=== PATIENT | male | born 1995 | race American Indian/Alaskan Native ===

== ENCOUNTER 2021-10-28 09:01 | Emergency (ER) | payer MEDICAID ==
[~2021-10-28] VITALS: Ht 177.8 cm; Wt 127.3 kg
[~2021-10-28 09:01] MED LIST: ALBU8.5H4 IH; PRED20TA PO
[2021-10-28 09:08] VITALS: BP 111/70
[2021-10-28] MEDS ORDERED: PENI250T2 PO (09:57)
[2021-10-28] MEDS ORDERED: TRAM50TA2 PO (09:57)
[2021-10-28] MEDS ORDERED: NAPR-56 PO (09:57)
== END 2021-10-28 10:05 | disposition home or self-care (01) ==
LOC: ER 09:02
DX: K01.1 Impacted teeth (principal)
CPT/HCPCS: 99283

== ENCOUNTER 2023-11-10 00:45 | Emergency (ER) | payer MEDICAID ==
[~2023-11-10] VITALS: Ht 180.3 cm; Wt 131.8 kg
[2023-11-10 03:26] VITALS: PULSE 96
[2023-11-10] MEDS ORDERED: DYN500C PO (04:01)
[2023-11-10] MEDS ORDERED: CIPR10DR LEFT EAR (04:08)
[2023-11-10] MEDS: dicloxacillin 500 MG capsule PO STA (04:41)
[2023-11-10] MEDS: Cipro HC otic suspension 10ML bottle LEFT EAR STA (04:51)
[2023-11-10] MEDS: HYDROcodone/acetaminophen 10/325mg tab PO ONE (05:08)
[2023-11-10] MEDS: naproxen 500mg tablet PO ONE (05:08)
[2023-11-10] MEDS: amox tr/potassium clavulanate 875/125mg TAB PO ONE (05:09)
[2023-11-10 05:23] VITALS: BP 147/47; RESP 12; TEMP 98.7; O2SAT 100
== END 2023-11-10 05:25 | disposition home or self-care (01) ==
LOC: ER 00:45
DX: H60.8X2 Other otitis externa, left ear (principal); Z98.890 Other specified postprocedural states; Z79.899 Other long term (current) drug therapy; Z79.2 Long term (current) use of antibiotics
CPT/HCPCS: 99284

== ENCOUNTER 2023-12-19 20:33 | Emergency (ER) | payer MEDICAID ==
[~2023-12-19] VITALS: Ht 180.3 cm; Wt 132.0 kg
[2023-12-19] MEDS ORDERED: NEOM10DR45 RIGHT EAR (21:24)
[2023-12-19] MEDS ORDERED: AMOX500C2 PO (21:24)
[2023-12-19] MEDS: acetaminophen 325mg tablet PO ONE (21:41)
[2023-12-19] MEDS: ibuprofen tablet 400 MG TABLET PO ONE (21:41)
[2023-12-19 21:53] VITALS: BP 142/80; PULSE 99; RESP 20; TEMP 99.6; O2SAT 96
== END 2023-12-19 21:53 | disposition home or self-care (01) ==
LOC: ER 20:34
DX: H60.8X1 Other otitis externa, right ear (principal); Z98.890 Other specified postprocedural states; Z79.899 Other long term (current) drug therapy; Z79.52 Long term (current) use of systemic steroids
CPT/HCPCS: 99283